=== PATIENT | female | born 2000 | race African-American/Black ===

== ENCOUNTER 2021-03-01 01:44 | Emergency (ER) | payer MEDICAID ==
[~2021-03-01] VITALS: Ht 152.4 cm; Wt 82.0 kg
[2021-03-01] MEDS ORDERED: MAGNESIUM/ALUMINUM HYDROXIDE/SIMETHICONE 30ML UDC PO STA (04:21)
[2021-03-01] MEDS ORDERED: ONDANSETRON 4MG ODT PO STA (04:21)
[2021-03-01] MEDS ORDERED: VISCOUS LIDOCAINE 2% 15 ML UDC PO STA (04:21)
[2021-03-01 04:54] LABS: BASOPHILS % 0.6 % (0.0-2.0); EOSINOPHILS % 0.1 % (0.0-5.0); HEMATOCRIT. 39.5 % (36.0-48.0); HEMOGLOBIN. 13.1 g/dL (12.0-16.0); LYMPHOCYTES % 7.5 % (20.0-50.0); MEAN CORPUSCULAR HEMOGLOBIN 29.9 pg (28.0-32.0); MEAN CORPUSCULAR VOLUME 90.3 fL (81.0-99.0); MEAN PLATELET VOLUME 7.8 fl (7.4-10.4); MONOCYTES % 5.5 % (2.0-8.0); NEUTROPHILS % 86.3 % (40.0-76.0); PLATELET 405 x1000/uL (130-400); RED BLOOD CELL COUNT 4.38 mill/uL (4.2-5.4); RED CELL DISTRIBUTION WIDTH 13.1 % (11.6-14.6)
[2021-03-01] MEDS ORDERED: KETOROLAC 30MG/ML VIAL IV NR (05:15)
[2021-03-01 05:17] LABS: HCG SCREEN NEGATIVE
[2021-03-01 05:19] LABS: CLARITY URINE CLOUDY (CLEAR); COLOR URINE YELLOW (YELLOW); KETONES URINE 1+ (NEGATIVE); LEUKOCYTE ESTERASE URINE NEGATIVE (NEGATIVE); NITRITE URINE NEGATIVE (NEGATIVE); OCCULT BLOOD URINE 2+ (NEGATIVE); PH URINE 5.5 (4.5-8.0); PROTEIN URINE 1+ (NEGATIVE)
[2021-03-01 05:21] LABS: CHLORIDE 105 mEq/L (98-107)
[2021-03-01] MEDS ORDERED: SODIUM CHLORIDE 0.9% 1,000 ML IV ONE (05:30)
[2021-03-01 05:42] VITALS: BP 121/73
[2021-03-02] MEDS ORDERED: ONDA4TAB5 MT (16:26)
[2021-03-02] MEDS ORDERED: FAMO-135 MT (16:26)
[2021-03-02] MEDS ORDERED: LOPE2CAP MT (16:27)
[2021-03-02] MEDS ORDERED: NITR-87 MT (16:28)
== END 2021-03-01 08:43 | disposition home or self-care (01) ==
LOC: ER 01:44
DX: R10.13 Epigastric pain (principal); R11.2 Nausea with vomiting, unspecified; Z79.899 Other long term (current) drug therapy
CPT/HCPCS: 36415; 74176; 76705; 80048; 81003; 83690; 84703; 85025; 96361; 96374; 99285; J1885; Q0162

== ENCOUNTER 2021-03-02 11:56 | Emergency (ER) | payer MEDICAID ==
[~2021-03-02] VITALS: Ht 165.1 cm; Wt 86.0 kg
[2021-03-02 12:46] LABS: CLARITY URINE TURBID (CLEAR); COLOR URINE YELLOW (YELLOW); KETONES URINE TRACE (NEGATIVE); LEUKOCYTE ESTERASE URINE 1+ (NEGATIVE); NITRITE URINE NEGATIVE (NEGATIVE); OCCULT BLOOD URINE 3+ (NEGATIVE); PROTEIN URINE 2+ (NEGATIVE); SPECIFIC GRAVITY URINE 1.034 (1.005-1.030)
[2021-03-02] MEDS ORDERED: FAMOTIDINE 20MG/2ML VIAL IV STA (16:23)
[2021-03-02] MEDS ORDERED: ONDANSETRON HCL 4MG/2ML INJ IV STA (16:23)
[2021-03-02] MEDS ORDERED: ONDA4TAB5 MT (16:26)
[2021-03-02] MEDS ORDERED: FAMO-135 MT (16:26)
[2021-03-02] MEDS ORDERED: LOPE2CAP MT (16:27)
[2021-03-02] MEDS ORDERED: NITR-87 MT (16:28)
[2021-03-02] MEDS ORDERED: LOPERAMIDE HCL 2MG CAPSULE PO ONE (16:30)
[2021-03-02] MEDS ORDERED: SODIUM CHLORIDE 0.9% 1,000 ML IV ONE (16:30)
[2021-03-02] MEDS ORDERED: CEFTRIAXONE 1 G PREMIX 50 ML IV ONE (18:15)
[2021-03-02] MEDS ORDERED: METOCLOPRAMIDE HCL 10MG/2ML VIAL IV ONE (18:15)
[2021-03-02] MEDS ORDERED: ACETAMINOPHEN 325MG TABLET PO ONE (19:15)
[2021-03-02 19:45] VITALS: BP 130/70
== END 2021-03-02 20:06 | disposition home or self-care (01) ==
LOC: ER 11:56
DX: K52.9 Noninfective gastroenteritis and colitis, unspecified (principal); N39.0 Urinary tract infection, site not specified
CPT/HCPCS: 81003; 96361; 96365; 96375; 99285; J0696; J2405; J2765; J3490

== ENCOUNTER 2021-03-08 19:34 | Emergency (ER) | payer MEDICAID ==
[~2021-03-08] VITALS: Ht 165.1 cm; Wt 87.0 kg
[~2021-03-08 19:34] MED LIST: FAMO-135 MT; LOPE2CAP MT; NITR-87 MT; ONDA4TAB5 MT
[2021-03-08 19:51] VITALS: BP 142/81
[2021-03-08] MEDS ORDERED: METOCLOPRAMIDE HCL 5MG TABLET PO ONE (22:30)
[2021-03-08 22:36] LABS: CLARITY URINE CLOUDY (CLEAR); COLOR URINE YELLOW (YELLOW); KETONES URINE 1+ (NEGATIVE); LEUKOCYTE ESTERASE URINE 1+ (NEGATIVE); NITRITE URINE NEGATIVE (NEGATIVE); OCCULT BLOOD URINE NEGATIVE (NEGATIVE); PROTEIN URINE TRACE (NEGATIVE); SPECIFIC GRAVITY URINE 1.019 (1.005-1.030)
[2021-03-08 23:38] LABS: BASOPHILS % 0.6 % (0.0-2.0); EOSINOPHILS % 1.2 % (0.0-5.0); HEMATOCRIT. 40.8 % (36.0-48.0); HEMOGLOBIN. 13.7 g/dL (12.0-16.0); LYMPHOCYTES % 30.5 % (20.0-50.0); MEAN CORPUSCULAR HEMOGLOBIN 30.7 pg (28.0-32.0); MEAN CORPUSCULAR VOLUME 91.1 fL (81.0-99.0); MEAN PLATELET VOLUME 7.5 fl (7.4-10.4); MONOCYTES % 5.9 % (2.0-8.0); NEUTROPHILS % 61.8 % (40.0-76.0); PLATELET 408 x1000/uL (130-400); RED BLOOD CELL COUNT 4.47 mill/uL (4.2-5.4); RED CELL DISTRIBUTION WIDTH 13.2 % (11.6-14.6)
[2021-03-08 23:45] LABS: CHLORIDE 107 mEq/L (98-107)
[2021-03-08] MEDS ORDERED: NITR-87 MT (23:59)
[2021-03-09] MEDS ORDERED: METO5TAB86 MT
[2021-03-09] MEDS ORDERED: ACETAMINOPHEN 325MG TABLET PO NR
[2021-03-09] MEDS: NITROFURANTOIN 100MG M/M CAPSULE PO NR ×2 (00:15→00:16)
== END 2021-03-09 00:18 | disposition home or self-care (01) ==
LOC: ER 19:34
DX: N39.0 Urinary tract infection, site not specified (principal)
CPT/HCPCS: 36415; 80053; 81003; 85025; 99284; J8597

== ENCOUNTER 2021-03-11 21:35 | Emergency (ER) | payer MEDICAID ==
[~2021-03-11] VITALS: Ht 165.1 cm; Wt 87.0 kg
[~2021-03-11 21:35] MED LIST changes: +METO5TAB86 MT
[2021-03-11] MEDS ORDERED: MAGNESIUM/ALUMINUM HYDROXIDE/SIMETHICONE 30ML UDC PO ONE (22:15)
[2021-03-11] MEDS ORDERED: ONDANSETRON 4MG ODT PO ONE (22:15)
[2021-03-11 22:58] LABS: CLARITY URINE CLOUDY (CLEAR); COLOR URINE DARK YELLOW (YELLOW); KETONES URINE 4+ (NEGATIVE); LEUKOCYTE ESTERASE URINE TRACE (NEGATIVE); NITRITE URINE NEGATIVE (NEGATIVE); OCCULT BLOOD URINE 1+ (NEGATIVE); PROTEIN URINE 1+ (NEGATIVE); SPECIFIC GRAVITY URINE 1.036 (1.005-1.030)
[2021-03-11] MEDS ORDERED: HALOPERIDOL LACTATE 5MG/ML VIAL IM ONE (23:45)
[2021-03-12] MEDS ORDERED: FAMO-135 MT (01:05)
[2021-03-12] MEDS ORDERED: CEPH500C2 MT (01:05)
[2021-03-12] MEDS ORDERED: METOCLOPRAMIDE HCL 5MG TABLET PO ONE (01:15)
[2021-03-12 01:34] VITALS: BP 100/54
== END 2021-03-12 01:39 | disposition home or self-care (01) ==
LOC: ER 21:35
DX: R10.13 Epigastric pain (principal); N39.0 Urinary tract infection, site not specified; K76.0 Fatty (change of) liver, not elsewhere classified; Z87.440 Personal history of urinary (tract) infections; Z79.899 Other long term (current) drug therapy
CPT/HCPCS: 76705; 81003; 81025; 96372; 99284; J1630; Q0162; J8597

== ENCOUNTER 2021-03-17 17:42 | Emergency (ER) | payer MEDICAID ==
[~2021-03-17] VITALS: Ht 165.1 cm; Wt 86.0 kg
[~2021-03-17 17:42] MED LIST changes: +CEPH500C2 MT
[2021-03-17] MEDS ORDERED: MORPHINE SULFATE 4 MG/ML CPJ (NOT FOR IM USE) IV STA (23:10)
[2021-03-17] MEDS ORDERED: ONDANSETRON HCL 4MG/2ML INJ IV STA (23:10)
[2021-03-17] MEDS ORDERED: SODIUM CHLORIDE 0.9% 1,000 ML IV ONE (23:15)
[2021-03-18 00:39] LABS: BASOPHILS % 0.4 % (0.0-2.0); HEMATOCRIT. 38.2 % (36.0-48.0); HEMOGLOBIN. 12.9 g/dL (12.0-16.0); LYMPHOCYTES % 7.9 % (20.0-50.0); MEAN CORPUSCULAR HEMOGLOBIN 30.7 pg (28.0-32.0); MEAN CORPUSCULAR VOLUME 90.9 fL (81.0-99.0); MEAN PLATELET VOLUME 8.5 fl (7.4-10.4); MONOCYTES % 2.5 % (2.0-8.0); NEUTROPHILS % 89.2 % (40.0-76.0); PLATELET 394 x1000/uL (130-400); RED BLOOD CELL COUNT 4.21 mill/uL (4.2-5.4)
[2021-03-18 00:40] LABS: CHLORIDE 108 mEq/L (98-107)
[2021-03-18 00:43] LABS: CLARITY URINE CLOUDY (CLEAR); COLOR URINE YELLOW (YELLOW); KETONES URINE 2+ (NEGATIVE); LEUKOCYTE ESTERASE URINE 1+ (NEGATIVE); NITRITE URINE NEGATIVE (NEGATIVE); OCCULT BLOOD URINE NEGATIVE (NEGATIVE); PH URINE 8.5 (4.5-8.0); PROTEIN URINE 1+ (NEGATIVE); SPECIFIC GRAVITY URINE 1.019 (1.005-1.030)
[2021-03-18 00:50] LABS: HCG SCREEN NEGATIVE
[2021-03-18] MEDS ORDERED: METOCLOPRAMIDE HCL 10MG/2ML VIAL IV ONE (03:30)
[2021-03-18] MEDS ORDERED: KETOROLAC 15MG/ML VIAL IV ONE (03:30)
[2021-03-18 06:45] VITALS: BP 142/86
== END 2021-03-18 06:45 | disposition home or self-care (01) ==
LOC: ER 17:42
DX: R10.13 Epigastric pain (principal); Z98.890 Other specified postprocedural states
CPT/HCPCS: 36415; 76700; 76830; 76856; 80053; 81003; 83605; 83690; 84703; 85025; 96361; 96374; 96375; 99284; J1885; J2270; J2405; J2765; J7030